=== PATIENT | male | born 1995 | race Caucasian/White ===

== ENCOUNTER 2017-03-12 20:26 | Emergency (ER) | payer MEDICARE, MEDICAID ==
[~2017-03-12 20:26] MED LIST: NO MEDICATIONS; OCUFLOX5 ML RIGHT EYE
== END 2017-03-12 21:25 ==
LOC: EDMED 20:26
PROC: 0HQFXZZ Repair Right Hand Skin, External Approach (ICD-10-PCS; principal; 2017-03-12)
DX: S61.210A Laceration without foreign body of right index finger without damage to nail, initial encounter (principal); Z23 Encounter for immunization; W26.8XXA Contact with other sharp object(s), not elsewhere classified, initial encounter; Y92.009 Unspecified place in unspecified non-institutional (private) residence as the place of occurrence of the external cause